=== PATIENT | female | born 1945 | race Caucasian/White ===

== ENCOUNTER 2022-05-04 12:15 | Day surgery (SDC) | payer OTHER ==
[~2022-05-04] VITALS: Ht 149.9 cm; Wt 56.6 kg
[~2022-05-04 12:15] MED LIST: ASPI81EC PO; METF500 PO; OMEG1CAP30 PO; RED RICE YEAST
== END 2022-05-04 15:15 | disposition home or self-care (01) ==
LOC: ORSCSDS 12:15
PROVIDERS: Ophthalmology
PROC: 08SQXZZ Reposition Right Lower Eyelid, External Approach (ICD-10-PCS; principal; 2022-05-04 14:00)
DX: H02.132 Senile ectropion of right lower eyelid (principal); H04.521 Eversion of right lacrimal punctum; H16.211 Exposure keratoconjunctivitis, right eye; Z96.1 Presence of intraocular lens; E11.9 Type 2 diabetes mellitus without complications; I10 Essential (primary) hypertension; Z79.84 Long term (current) use of oral hypoglycemic drugs; Z79.82 Long term (current) use of aspirin; Z79.899 Other long term (current) drug therapy
CPT/HCPCS: 82947; A9270; J2704; J3010

== ENCOUNTER 2022-08-01 09:23 | Day surgery (SDC) | payer OTHER ==
[2022-08-01] VITALS (16 sets, daily range): BP systolic 100–143; BP diastolic 63–109
[~2022-08-01] VITALS: Ht 152.4 cm; Wt 54.2 kg
[2022-08-01] MEDS ORDERED: PRAV20 PO (10:35)
--- NOTE | 2022-08-01 11:10 | NUR ---
Ambulatory in Day Surgery History, Chart, Medications and Allergies reviewed before start of procedure. Lungs clear T/O to Auscultation. Patient confirms NPO status and agrees with scheduled surgery. Pre-Op teaching done. Pt verbalizes understanding. Patient States Post-Procedure ride home has been arranged. PROVIDER NOTIFIED OF PT'S LOW HR.
--- NOTE | 2022-08-01 11:29 | NUR ---
08/01/22 Rosaura Trotter HISTORY, CHART, MEDICATIONS AND ALLERGIES REVIEWED BEFORE START OF PROCEDURE. PATIENT CONFIRMS NPO STATUS AND AGREES WITH SCHEDULED PROCEDURE. 3-LEAD EKG REVIEWED WITH PHYSICIAN PRIOR TO START OF PROCEDURE. MONITOR INTACT WITH CONTINUOUS PULSE OXIMETRY,CAPNOGRAPHY, 3-LEAD EKG, INTERMITTENT BP. SUPPLEMENTAL O2 TO BE TITRATED THROUGHOUT PROCEDURE TO MAINTAIN O2 SATURATION ABOVE 90%. PATIENT DETERMINED TO BE ASA APPROPRIATE FOR PROPOFOL SEDATION PRIOR TO START OF PROCEDURE BY DR. HONG.
--- NOTE | 2022-08-01 12:26 | NUR ---
VSS. NO C/O VERBALIZED. UP TO DRESS WTIH STEADY GAIT. Discharge instructions reviewed with patient. Patient verbalizes understanding. Copy given to patient to take home. Patient States Post-Procedure ride home has been arranged with her , Mark.
== END 2022-08-01 12:25 | disposition home or self-care (01) ==
LOC: ORSCMMR 09:23 → ORD 10:00 → ORSCMMR 10:00
PROVIDERS: Internal Medicine Gastroenterology
PROC: 0DJD8ZZ Inspection of Lower Intestinal Tract, Via Natural or Artificial Opening Endoscopic (ICD-10-PCS; principal; 2022-08-01 10:00)
DX: Z12.11 Encounter for screening for malignant neoplasm of colon (principal); E11.9 Type 2 diabetes mellitus without complications; E78.00 Pure hypercholesterolemia, unspecified; Z79.84 Long term (current) use of oral hypoglycemic drugs; Z79.899 Other long term (current) drug therapy
CPT/HCPCS: 82947; J0461; J2405; J2704; J7120